=== PATIENT | male | born 2000 ===

== ENCOUNTER 2021-10-01 12:30 | Emergency (ER) | payer BC, SELFPAY ==
--- NOTE | ~2021-10-01 | XR_ITS ---
XR foot RT min 3V 10/01/2021 12:54 INDICATION: Right foot pain after trauma PROCEDURE: 4 views right foot COMPARISON: No prior studies for comparison. FINDINGS: Fracture, dislocation or subluxation is not identified. Lisfranc joint is intact. The soft tissues appear within normal limits. No foreign bodies are identified. IMPRESSION: 1: NO ACUTE BONE OR JOINT ABNORMALITY IDENTIFIED. Reviewed, dictated and finalized at location [facility]. [facility]
[2021-10-01 12:43] VITALS: BP 131/66; PULSE 62; RESP 16; TEMP 35.7; O2SAT 99
--- NOTE | 2021-10-01 13:25 | ED.LOWEXIN ---
HPI - Extremity Injury (Lower) General Chief Complaint: Extremity Injury, Lower Stated Complaint: right great toe History of Present Illness HPI Narrative: This is a 21-year-old that fell on the stairs and tripped over a dog toy last night states that his big toe is the main thing that hurts anytime he puts pressure on it is unable to walk with much pressure on it without severe pain. Related Data Home Medications Medication Instructions Recorded Confirmed albuterol sulfate [ProAir HFA] 2 puff INHALATION QID PRN 10/01/21 10/01/21 Allergies Allergy/AdvReac Type Severity Reaction Status Date / Time DUST MITES Allergy Mild DRY, ROUGH Uncoded 10/01/21 13:12 SKIN Review of Systems Review of Systems: Left foot great toe pain All systems reviewed & are unremarkable except as noted in HPI and below PMFSH Family History Family History (Updated 06/18/16 @ 23:19 by DOCTOR UNKNOWN) Father Family history of diabetes mellitus in first degree relative Social History Social History Smoking status: Never smoker Alcohol intake: never Substance use type: marijuana Comments At time as signature, I have reviewed and agree with nursing past medical, social, surgical and family history. Please see nursing chart for further information. There is no relevant family history pertinent to the presenting complaint. Exam Narrative: GENERAL:Well-appearing, well-nourished, and in no acute distress. HEAD:Normocephalic, atraumatic. EYES: PERRLA ENT: Nares clear, no rhinorrhea CHEST: Clear to auscultation. No respiratory distress. HEART: Regular rate and rhythm. ABDOMEN: Soft, nontender, nondistended, normal active bowel sounds. EXTREMITIES: Normal range of motion. Left great toe swelling with pain pain with ambulation. SKIN: Warm, dry, no rash. NEURO: No focal deficits. Alert and oriented x3. Course Course Emergency Course: No fractures noted on x-ray Vital Signs Vital signs: Vital Signs Temperature 96.3 F L 10/01/21 12:43 Pulse Rate 62 10/01/21 12:43 Respiratory Rate 16 10/01/21 12:43 Blood Pressure 131/66 10/01/21 12:43 Pulse Oximetry 99 10/01/21 12:43 Temperature 96.3 F L 10/01/21 12:43 Pulse Rate 62 10/01/21 12:43 Respiratory Rate 16 10/01/21 12:43 Blood Pressure 131/66 10/01/21 12:43 Pulse Oximetry 99 10/01/21 12:43 Discharge Plan Discharge Clinical Impression: Foot sprain Qualifiers: Encounter type: initial encounter Laterality: left Qualified Code(s): S93.602A - Unspecified sprain of left foot, initial encounter Patient Disposition: Home, Self-Care Condition: Stable Instructions: Antibiotic Form, Foot Sprain (ED) Additional Instructions: Avoid weight bearing until the pain subsides. Ice to the area 20-30 minutes 4-6 times a day Elevate above heart Elastic wrap or orthopedic splint as directed for comfort for the next 5-7 days Crutches as directed if needed Tylenol for lesser pain Ibuprofen regularly for the next 2-3 days for the inflammation Follow up with your primary care provider if the condition is not improving within 1 week or sooner if the condition worsens with numbness, tingling, decrease sensation with weakness to seek ER. Prescriptions: New ibuprofen 800 mg tablet 800 mg PO TID PRN (Reason: pain) Qty: 20 RF: 0 No Action albuterol sulfate [ProAir HFA] 90 mcg/actuation Hfa Aerosol Inhaler 2 puff INHALATION QID PRN (Reason: difficulty breathing) RF: 0 Follow-up/Referrals: Nam Edouard MD [Primary Care Provider] - Stand Alone Forms: Work/School Release IP Time of Disposition: 13:32
== END 2021-10-01 13:35 | disposition home or self-care (01) ==
PROVIDERS: Emergency Provider Nurse Practitioner Family; PCP Family Medicine
DX: S93.402A Sprain of unspecified ligament of left ankle, initial encounter (principal); X58.XXXA Exposure to other specified factors, initial encounter; J45.909 Unspecified asthma, uncomplicated
CPT/HCPCS: 73630; 99213; G0463

== ENCOUNTER 2021-12-18 13:29 | Emergency (ER) | payer BC, SELFPAY ==
--- NOTE | 2021-12-18 13:51 | ED.URI ---
HPI - URI/Sore Throat General Chief Complaint: Upper Respiratory Infection Stated Complaint: Headache,Body Aches Time Seen by Provider: 12/18/21 13:51 Source: patient Mode of arrival: ambulatory Limitations: no limitations History of Present Illness HPI Narrative: Neal Gold is a 21 yo male with a PMH of asthma who had Covid in October [facility] with complaints of cough fever body aches chills for the past 2 to 3 days he also had some diarrhea. He has no sore throat He has not had Covid vaccine Related Data Home Medications Medication Instructions Recorded Confirmed albuterol sulfate [ProAir HFA] 2 puff INHALATION QID PRN 10/01/21 10/01/21 Allergies Allergy/AdvReac Type Severity Reaction Status Date / Time DUST MITES Allergy Mild DRY, ROUGH Uncoded 10/01/21 13:12 SKIN Review of Systems Review of Systems: CONSTITUTIONAL: has fever, chills, sweats. EYES: Denies visual changes, redness, discharge. ENT: Denies rhinorrhea,has congestion, sore throat, otalgia. CARDIOVASCULAR: Denies chest pain, palpitations, edema. RESPIRATORY: Denies dyspnea, wheezing, has cough GASTROINTESTINAL: Denies abdominal pain, nausea, vomiting, had diarrhea. GENITOURINARY: Denies dysuria, hematuria, abnormal discharge SKIN: Denies rash or itching. NEUROLOGIC: Denies numbness, or focal weakness. PSYCHIATRIC: Denies anxiety or depression. PMFSH Past Medical History Medical History Asthma Family History Family History Father Family history of diabetes mellitus in first degree relative Social History Social History Smoking status: Never smoker Alcohol intake: never Substance use type: marijuana Comments At time of signature, I agree with nursing past medical, surgical, social and family history. There is no relevant family history pertinent to the presenting complaint. Patient's blood pressure is elevated at this visit patient has flu Exam Narrative: GENERAL: This is a well-nourished, well-developed patient, in mild distress. HEAD: normocephalic, atraumatic. EYES: P Sclera clear/white. Vision is grossly intact. EARS: External ears normal, auditory canals clear and without drainage. Hearing grossly intact. NOSE: External nose normal without nasal discharge, nares without redness, has rhinorrhea. THROAT: Mucous membranes moist, posterior pharynx pink NECK: Neck supple, non-tender CARDIOVASCULAR: Tachycardic rate and rhythm without murmurs, gallops, or rubs. RESPIRATORY: Diminished to auscultation. Breath sounds equal bilaterally. No wheezes, rales, or rhonchi. GASTROINTESTINAL: Abdomen soft, non-tender, SKIN: warm, intact with no suspicious lesions or rash, good texture and turgor. NEURO: awake, alert, and oriented to person, place and time. There were no obvious focal neurologic abnormalities. Steady gait EXTREMITIES: Normal range of motion. BACK: Nontender without deformity Course Course Emergency Course: Patient comes complaining of fever diarrhea cough general body aches x2 to 3 days. States he had Covid in October. Flu test shows-positive for flu a Covid test shows-negative Treated with cough medicine ibuprofen 600 mg 3 times daily Level of Care: Express Care Visit Vital Signs Vital signs: Vital Signs Temperature 98.7 F 12/18/21 13:58 Pulse Rate 82 12/18/21 13:58 Respiratory Rate 18 12/18/21 13:58 Blood Pressure 150/74 H 12/18/21 13:58 Pulse Oximetry 100 12/18/21 13:58 Temperature 98.7 F 12/18/21 13:58 Pulse Rate 82 12/18/21 13:58 Respiratory Rate 18 12/18/21 13:58 Blood Pressure 150/74 H 12/18/21 13:58 Pulse Oximetry 100 12/18/21 13:58 MDM - URI/Sore Throat Differential Diagnosis Differential diagnosis: Likely upper respiratory infection, sinusitis, viral infection, influenza and pharyn
[2021-12-18 13:58] VITALS: BP 150/74; PULSE 82; RESP 18; TEMP 37.1; O2SAT 100
== END 2021-12-18 14:29 | disposition home or self-care (01) ==
PROVIDERS: Emergency Provider Nurse Practitioner; PCP Family Medicine
DX: J11.1 Influenza due to unidentified influenza virus with other respiratory manifestations (principal); Z20.822 Contact with and (suspected) exposure to COVID-19; J45.909 Unspecified asthma, uncomplicated; Z86.16 Personal history of COVID-19
CPT/HCPCS: 87426; 87804; 99213; C9803; G0463

== ENCOUNTER 2022-03-23 16:25 | Emergency (ER) | payer BC, SELFPAY ==
[2022-03-23 16:34] VITALS: BP 125/67; PULSE 74; RESP 16; TEMP 36.7; O2SAT 99
--- NOTE | 2022-03-23 17:15 | ED.URI ---
HPI - URI/Sore Throat General Chief Complaint: Upper Respiratory Infection Stated Complaint: cough/diarrhea/sore throat Time Seen by Provider: 03/23/22 16:40 Source: patient Mode of arrival: ambulatory Limitations: no limitations History of Present Illness HPI Narrative: Neal is a 21-year-old male patient presenting to the clinic today with complaints of cough, diarrhea, and sore throat x4 days. Mother reports that she started out with the symptoms and thinks that she has given them to her son. He denies any known exposure to anyone with COVID, strep, or flu. He has had COVID in the past. He reports that he is having some abdominal cramping prior to having diarrhea episodes but no more pain otherwise. He denies any fever or chills. He denies any blood in his stool. States the diarrhea has improved and he is only complaining of cough and sore throat. MD elicited complaint: cough, sore throat, nasal congestion and other (Diarrhea) Related Data Home Medications Medication Instructions Recorded Confirmed albuterol 90 mcg INHALATION PRN PRN 03/23/22 03/23/22 Allergies Allergy/AdvReac Type Severity Reaction Status Date / Time DUST MITES Allergy Mild DRY, ROUGH Uncoded 03/23/22 17:02 SKIN Review of Systems Review of Systems: Pertinent positives per HPI. Patient denies any fever, chills, rash, headache, visual changes, dizziness, shortness of breath, chest pain, palpitations, nausea, vomiting, constipation, abdominal pain, or any urinary issues. PMFSH Past Medical History Medical History Asthma Family History Family History Father Family history of diabetes mellitus in first degree relative Social History Social History Smoking status: Never smoker Alcohol intake: never Substance use type: marijuana Comments At the time of my signature, I reviewed and agree with the nursing past medical, surgical, social, and family history. There is no relevant family history pertinent to the patient complaint. Exam Narrative: General: Well-developed, well nourished, in no apparent distress Head: Normocephalic, atraumatic Eyes: Pupils equally round and reactive to light bilaterally, EOM intact, sclera and conjunctive clear, no discharge, lids normal Ears: TMs intact and dull, ear canals clear, no drainage, grossly hearing normal. Nose: Nares patent, clear nasal discharge, no inflammation, no sinus tenderness. Mouth: Oral pharynx without lesions or masses, good dentition, MMM. Postnasal drip, oropharynx red Neck: Supple, trachea midline, no enlargement of anterior or posterior cervical nodes, no thyroid masses or goiter palpable. Cardio: Regular rate and rhythm, s1 and s2 normal, no murmur appreciated. Resp: Clear to auscultation bilaterally, no rhonchi, rales, wheezing or rubs Abdomen: Soft, pliable, nontender to palpation, no organomegaly, bowel sounds present all 4 quadrants, no CVAT tenderness Course Course Emergency Course: Portions of this record may have been created with voice recognition software. Level of Care: Express Care Visit Vital Signs Vital signs: Vital Signs Temperature 36.7 C 03/23/22 16:34 Pulse Rate 74 03/23/22 16:34 Respiratory Rate 16 03/23/22 16:34 Blood Pressure 125/67 03/23/22 16:34 Pulse Oximetry 99 03/23/22 16:34 Temperature 36.7 C 03/23/22 16:34 Pulse Rate 74 03/23/22 16:34 Respiratory Rate 16 03/23/22 16:34 Blood Pressure 125/67 03/23/22 16:34 Pulse Oximetry 99 03/23/22 16:34 Vital signs reviewed MDM - URI/Sore Throat MDM Narrative Medical decision making narrative: At the time of visit patient is resting comfortably on the exam table. He reports that he is having diarrhea, cough, sore throat. COVID, flu, strep testing completed and were all negat
== END 2022-03-23 17:30 | disposition home or self-care (01) ==
PROVIDERS: Emergency Provider Nurse Practitioner Family; PCP Family Medicine
DX: A08.4 Viral intestinal infection, unspecified (principal); J06.9 Acute upper respiratory infection, unspecified; J45.909 Unspecified asthma, uncomplicated; Z20.822 Contact with and (suspected) exposure to COVID-19
CPT/HCPCS: 87081; 87426; 87804; 87880; 99213; C9803; G0463

== ENCOUNTER 2022-04-15 10:19 | Emergency (ER) | payer BC, SELFPAY ==
[2022-04-15 10:22] VITALS: BP 126/68; PULSE 59; RESP 16; TEMP 36.7; O2SAT 99
[2022-04-15 10:37] VITALS: BP 103/82; PULSE 56; RESP 103; O2SAT 100
[2022-04-15 10:56] LABS: Basophils Absolute Auto 0.1 K/mm3 (0.0-0.1); Basophils Percent Auto 0.9 % (0.2-1.2); Eosinophils Absolute Auto 0.1 K/mm3 (0-0.3); Eosinophils Percent Auto 0.9 % (0-4.4); Hematocrit 41.2 % (42.0-52.0); Hemoglobin 13.5 g/dL (14.0-18.0); Immature Granulocyte Absolute 0.02 K/mm3 (0.00-0.031); Immature Granulocyte Percent A 0.3 % (0-0.5); Lymphocytes Absolute Auto 2.41 K/mm3 (0.9-3.2); Lymphocytes Percent Auto 37.8 % (18.3-44.2); Mean Corpuscular HGB Conc 32.8 g/dl (32-36); Mean Corpuscular Hemoglobin 29.9 pg (26-34); Mean Corpuscular Volume 91.4 fl (80-100); Mean Platelet Volume 9.7 fl (7.4-10.4); Monocytes Absolute Auto 0.6 K/mm3 (0.1-0.6); Monocytes Percent Auto 8.6 % (2.6-8.5); Neutrophils Absolute Auto 3.3 K/mm3 (1.3-6.7); Neutrophils Percent Auto 51.5 % (45.5-73.1); Platelet Count Result 184 k/mm3 (150-375); Red Blood Count 4.51 M/mm3 (4.6-6.20); Red Cell Distribution Width 12.6 % (11.5-14.5); White Blood Count 6.4 K/mm3 (4.5-10.0)
[2022-04-15 10:58] LABS: Add Urine Microscopic? NO; Appearance Urine Clear (Clear); Bilirubin Urine Negative (Negative); Blood Urine Negative (Negative); Color Urine Yellow (Yellow); Glucose Urine UA Negative (Negative); Ketones Urine Negative (Negative); Leukocyte Esterase Ur Negative LEU/UL (Negative); Nitrate Urine Negative (Negative); Protein Urine Negative (Negative); pH Urine 7.5 (5.0-9.0)
[2022-04-15 10:59] LABS: Alanine Aminotransferase 35 U/L (6-50); Albumin Level 4.3 g/dL (3.5-5.1); Alkaline Phosphatase 78 U/L (38-126); Anion Gap 8 mmol/L (8-16); Aspartate Amino Transferase 40 U/L (17-59); Bilirubin,Total 1.7 mg/dL (0.2-1.3); Blood Urea Nitrogen 16 mg/dL (9-20); Calcium 8.8 mg/dL (8.4-10.2); Carbon Dioxide 25 mmol/L (22-30); Chloride 107 mmol/L (98-107); Estimated CRCL calculation 136 ml/min; Estimated Glomerular Filt Rate > 60; Glucose 92 mg/dL (65-110); Lipase 95 U/L (23-300); Potassium 4.4 mmol/L (3.4-5.0); Sodium 140 mmol/L (137-145)
[2022-04-15] MEDS: SODIUM CHLORIDE 0.9% IV 500 ML 999 ML IV CONT (11:22)
[2022-04-15 11:23] VITALS: BP 117/67; PULSE 57; RESP 16; O2SAT 100
[2022-04-15] MEDS: ONDANSETRON INJ 4 MG/2 ML VIAL IV PUSH (11:23)
--- NOTE | 2022-04-15 12:09 | ED.NAVMDI ---
HPI - Nausea/Vomiting/Diarrhea General Chief complaint: Nausea/Vomiting/Diarrhea Stated complaint: N/V Time Seen by Provider: 04/15/22 10:44 Source: patient and family Mode of arrival: ambulatory Limitations: no limitations History of Present Illness HPI Narrative: 22-year-old otherwise healthy here with complaints of nausea and vomiting for past several months. Patient states that he occasionally gets up in the morning and has vomiting but he never thought it was a problem for past few days he has been having recurrent vomiting. Patient states he was at work and felt extremely nauseated and threw up. He presently denies any pain, nausea. Related Data Home Medications Medication Instructions Recorded Confirmed albuterol 90 mcg/actuation aerosol 90 mcg inhalation PRN PRN 03/23/22 03/23/22 inhaler difficulty breathing Allergies Allergy/AdvReac Type Severity Reaction Status Date / Time DUST MITES Allergy Mild DRY, ROUGH Uncoded 04/15/22 10:36 SKIN Review of Systems Review of Systems: All systems reviewed & are unremarkable except as noted in HPI and below Constitutional: Constitutional: Reports no additional constitutional complaints Eyes: Eyes: Reports no additional eye complaints ENT: Reports system reviewed and no additional complaints, except as documented Cardiovascular: Cardiovascular: Reports no additional cardiovascular complaints Respiratory: Respiratory: Reports no additional respiratory complaints Gastrointestinal: Gastrointestinal: Reports as per HPI Musculoskeletal: Musculoskeletal: Reports no additional musculoskeletal complaints Integumentary/Breasts: Skin/Breast: Reports system reviewed and no additional complaints, except as docu Neurologic: Reports system reviewed and no additional complaints, except as documented PMFSH Past Medical History Medical History Asthma Family History Family History Father Family history of diabetes mellitus in first degree relative Social History Social History Smoking status: Never smoker Alcohol intake: never Substance use type: marijuana Exam Narrative: GENERAL: Well-appearing, well-nourished, and in no acute distress. HEAD: Normocephalic, atraumatic. EYES: PERRLA and EOMI. NECK: Supple. CHEST: Clear to auscultation. No respiratory distress. HEART: Regular rate and rhythm. No murmur heard. Normal peripheral pulses. ABDOMEN: Soft, nontender, nondistended, normal active bowel sounds. EXTREMITIES: Normal range of motion. No edema. SKIN: Warm, dry, no rash. NEURO: No focal deficits. Alert and oriented x3. PSYCH: Normal mood and affect. Course Course Emergency Course: Patient feeling much better. Informed him about his lab work. Mom requested a GI consult we will give him a referral number for him to contact. Also requesting a day off from work. Vital Signs Vital signs: Vital Signs Temperature 36.7 C 04/15/22 10:22 Pulse Rate 59 L 04/15/22 10:22 Respiratory Rate 16 04/15/22 10:22 Blood Pressure 126/68 04/15/22 10:22 Pulse Oximetry 99 04/15/22 10:22 Oxygen Delivery Room Air 04/15/22 10:22 Temperature 36.7 C 04/15/22 10:22 Pulse Rate 57 L 04/15/22 11:23 Respiratory Rate 16 04/15/22 11:23 Blood Pressure 117/67 04/15/22 11:23 Pulse Oximetry 100 04/15/22 11:23 Oxygen Delivery Room Air 04/15/22 10:37 MDM - Nausea/Vomiting/Diarrhea Lab Data Result diagrams: 04/15/22 10:43 04/15/22 10:43 Labs: Lab Results 04/15/22 04/15/22 04/15/22 Range/Units 10:43 10:43 10:47 WBC 6.4 (4.5-10.0) K/mm3 RBC 4.51 L (4.6-6.20) M/mm3 Hgb 13.5 L (14.0-18.0) g/dL Hct 41.2 L (42.0-52.0) % MCV 91.4 (80-100) fl MCH 29.9 (26-34) pg MCHC 32.8 (32-36) g/dl RDW 12.6 (11.5-14.5
[2022-04-15 12:20] VITALS: BP 111/73; PULSE 67; RESP 18; O2SAT 100
== END 2022-04-15 12:25 | disposition home or self-care (01) ==
PROVIDERS: Emergency Provider Family Medicine; PCP Family Medicine
DX: K29.70 Gastritis, unspecified, without bleeding (principal); J45.909 Unspecified asthma, uncomplicated
CPT/HCPCS: 36415; 80053; 81003; 83690; 85025; 96374; 99284; J2405; J7040

== ENCOUNTER 2022-06-18 09:33 | Emergency (ER) | payer BC, SELFPAY ==
[2022-06-18 09:52] VITALS: BP 139/70; PULSE 73; RESP 17; TEMP 36.5; O2SAT 100
--- NOTE | 2022-06-18 10:15 | ED.ABDPAIN ---
HPI - Abdominal Pain General Chief Complaint: Nausea/Vomiting/Diarrhea Stated Complaint: Nausea Time Seen by Provider: 06/18/22 10:13 Source: patient and RN notes reviewed Mode of arrival: ambulatory Limitations: no limitations History of Present Illness HPI narrative: 22-year-old male presents with concern for nausea and vomiting that started this morning. He reports 2 episodes of vomiting. He denies diarrhea, fever, bodies, chills, sweats, upper respiratory symptoms. He reports he took acid reflux medicine with no relief. Reports he has not tried eating today, he has been drinking water. He reports similar history of vomiting that occurs frequently only in the mornings. MD elicited complaint: other (Nausea and vomiting) Related Data Home Medications Medication Instructions Recorded Confirmed albuterol 90 mcg/actuation aerosol 90 mcg inhalation PRN PRN 03/23/22 06/18/22 inhaler difficulty breathing Allergies Allergy/AdvReac Type Severity Reaction Status Date / Time DUST MITES Allergy Mild DRY, ROUGH Uncoded 06/18/22 09:57 SKIN Review of Systems Review of Systems: CONSTITUTIONAL: Denies malaise, chills, sweats, or fever. ENT: Denies rhinorrhea, congestion, sinus pain, otalgia or sore throat. CARDIOVASCULAR: Denies chest pain, palpitations, or edema. RESPIRATORY: Denies cough or dyspnea. GASTROINTESTINAL: Denies abdominal pain, diarrhea, bloody, or mucous stools. Reports 2 episodes of nausea and vomiting GENITOURINARY: Denies dysuria or hematuria. MUSCULOSKELETAL: Denies myalgia. NEUROLOGIC: Denies headache. All systems reviewed & are unremarkable except as noted in HPI and below PMFSH Past Medical History Medical History Asthma Family History Family History Father Family history of diabetes mellitus in first degree relative Social History Social History Smoking status: Never smoker Alcohol intake: never Substance use type: marijuana Comments At time of signature, agree with nursing past medical, surgical, social and family history. There is no relevant family history pertinent to the presenting complaint Exam Narrative: GENERAL: Well-appearing, well-nourished, and in no acute distress. HEAD: Normocephalic, atraumatic. EYES: PERRLA, conjunctivae clear, and EOMI. ENT: Nares clear, turbinates pink, no rhinorrhea or epistaxis. Mucous membranes moist. Oropharynx without edema, erythema, or lesions. Tonsils not enlarged and without exudate. NECK: Supple. No lymphadenopathy CHEST: Speaks in full sentences. No respiratory distress. HEART: Regular rate and rhythm. ABDOMEN: Soft, flat, nondistended, nontender. No guarding, rebound tenderness, or rigidity. No pulsatile masses. Bowel sounds present in all four quadrants. No organomegaly. Negative Chappell?s sign. No periumbilical tenderness. No Supra public tenderness or distension. Good femoral pulses bilaterally. No hernia noted. No scars or surface trauma. SKIN: Warm, dry, no rash. NEURO: Alert and oriented x3. PSYCH: Normal mood and affect Course Course Emergency Course: Patient is aware of diagnosis, understands and agrees to treatment plan. Anticipatory guidance given. Patient agrees to follow-up as directed and is aware of reasons to seek care at the emergency department. Portions of this record may have been created with voice recognition software Level of Care: Express Care Visit Vital Signs Vital signs: Vital Signs Temperature 97.7 F 06/18/22 09:52 Pulse Rate 73 06/18/22 09:52 Respiratory Rate 17 06/18/22 09:52 Blood Pressure 139/70 06/18/22 09:52 Pulse Oximetry 100 06/18/22 09:52 Oxygen Delivery Room Air 06/18/22 09:52 Temperature 97.7 F 06/18/22 09:52 Pulse Rate 73 06/18/22 09:52 Respiratory Rate 06/18/22 09:52 Blood Pressure 139/70
== END 2022-06-18 10:36 | disposition home or self-care (01) ==
PROVIDERS: Emergency Provider Nurse Practitioner; PCP Family Medicine
DX: R11.2 Nausea with vomiting, unspecified (principal); J45.909 Unspecified asthma, uncomplicated
CPT/HCPCS: 99213; G0463

== ENCOUNTER 2022-07-09 12:41 | Emergency (ER) | payer BC, SELFPAY ==
[2022-07-09 12:49] VITALS: BP 117/74; PULSE 66; RESP 16; TEMP 36.4; O2SAT 99
--- NOTE | 2022-07-09 13:00 | ED.NAVMDI ---
HPI - Nausea/Vomiting/Diarrhea General Chief complaint: Nausea/Vomiting/Diarrhea Stated complaint: n/v/d Time Seen by Provider: 07/09/22 13:09 History of Present Illness HPI Narrative: 22 y/o male presented for c/o sore throat, n/v and feeling warm for 2 days. Taking ibuprofen for throat pain. Hx recurrent reflux/vomiting, stating the episode of vomiting is not unusual, and plans to f/u with GI specialist. Has not eaten anything today. Denies cough, shortness of breath, wheezing, diarrhea, hematemesis. Not vaccinated for covid. Denies sick contacts. Related Data Home Medications Medication Instructions Recorded Confirmed albuterol 90 mcg/actuation aerosol 90 mcg inhalation PRN PRN 03/23/22 07/09/22 inhaler difficulty breathing Allergies Allergy/AdvReac Type Severity Reaction Status Date / Time DUST MITES Allergy Mild DRY, ROUGH Uncoded 07/09/22 12:43 SKIN Review of Systems Review of Systems: CONSTITUTIONAL: Denies body aches, fever, chills, or sweats. EYES: Denies visual changes, redness, or discharge. ENT: Denies rhinorrhea, congestion, or otalgia. CARDIOVASCULAR: Denies chest pain, palpitations, or edema. RESPIRATORY: Denies dyspnea. GASTROINTESTINAL: Denies abdominal pain, diarrhea. SKIN: Denies rash, itching, or wounds. MUSCULOSKELETAL: Denies back pain, joint pain, or myalgia. NEUROLOGIC: Denies headache PMFSH Past Medical History Medical History Asthma Family History Family History Father Family history of diabetes mellitus in first degree relative Social History Social History Smoking status: Never smoker Alcohol intake: never Substance use type: marijuana Exam Narrative: GENERAL: well-appearing EYES: conjunctivae clear ENT: Mucous membranes moist. TMs pearly with normal light reflex bilaterally; no tragal tenderness. Oropharynx erythematous without lesions. No drooling, no hoarseness, no trismus, uvula midline. No tripod positioning, hot potato voice, or soft palate swelling. NECK: Supple. No lymphadenopathy CHEST: Clear to auscultation, breath sounds equal. ABD: soft flat nontender HEART: Regular rate and rhythm. No murmur heard. SKIN: Warm, dry, no rash. NEURO: Alert and oriented x3. Course Course Emergency Course: Patient is aware of diagnosis, understands and agrees to treatment plan. Anticipatory guidance given. Patient agrees to follow-up as directed and is aware of reasons to seek care at the emergency department. Portions of this record may have been created with voice recognition software Level of Care: Express Care Visit Vital Signs Vital signs: Vital Signs Temperature 97.5 F L 07/09/22 12:49 Pulse Rate 66 07/09/22 12:49 Respiratory Rate 16 07/09/22 12:49 Blood Pressure 117/74 07/09/22 12:49 Pulse Oximetry 99 07/09/22 12:49 Oxygen Delivery Room Air 07/09/22 12:49 Temperature 97.5 F L 07/09/22 12:49 Pulse Rate 66 07/09/22 12:49 Respiratory Rate 16 07/09/22 12:49 Blood Pressure 117/74 07/09/22 12:49 Pulse Oximetry 99 07/09/22 12:49 Oxygen Delivery Room Air 07/09/22 12:49 MDM - Nausea/Vomiting/Diarrhea MDM Narrative Medical decision making narrative: Covid negative. reviewed with pt. Advised supportive measures and signs/symptoms to go to the ER. Pt is appropriate for outpt treatment and f/u. Differential Diagnosis Differential diagnosis: Likely gastroenteritis and other (viral infection, reflux, pharyngitis, tonsillitis) Lab Data Labs: Lab Results 07/09/22 Range/Units 13:00 POC SARS CoV-2 Ag Negative (Negative) Discharge Plan Discharge Clinical Impression: Acute viral syndrome Patient Disposition: Home, Self-Care Condition: Stable Instructions: Antibiotic Form, COVID-19 (Coronavirus Disease 2
== END 2022-07-09 13:25 | disposition home or self-care (01) ==
PROVIDERS: Emergency Provider Nurse Practitioner Family; PCP Family Medicine
DX: B34.9 Viral infection, unspecified (principal); Z20.822 Contact with and (suspected) exposure to COVID-19; J45.909 Unspecified asthma, uncomplicated
CPT/HCPCS: 87426; 99213; C9803; G0463

== ENCOUNTER 2022-09-06 14:50 | Emergency (ER) | payer BC, SELFPAY ==
[2022-09-06 15:14] VITALS: BP 138/69; PULSE 55; RESP 20; TEMP 36.6; O2SAT 100
--- NOTE | 2022-09-06 15:27 | ED.GENADULT ---
HPI - General Adult General Chief complaint: Abdominal Pain Stated complaint: Abdominal Pain Time Seen by Provider: 09/06/22 15:28 Source: patient, RN notes reviewed and old records reviewed Mode of arrival: ambulatory Limitations: no limitations History of Present Illness HPI narrative: 22-year-old male presents to the [facility] with complaints of diarrhea once last night and once this morning. Patient states that he just wants to get checked out. Patient denies any abdominal pain or chest pain. No shortness of breath. Denies fevers. Denies urinary symptoms. Requesting a work note Review of Systems Review of Systems: All systems reviewed & are unremarkable except as noted in HPI and below Constitutional: Constitutional: Reports no additional constitutional complaints, Denies chills and Denies fever(s) Eyes: Eyes: Reports no additional eye complaints ENT: Reports system reviewed and no additional complaints, except as documented Cardiovascular: Cardiovascular: Reports no additional cardiovascular complaints Respiratory: Respiratory: Reports no additional respiratory complaints Gastrointestinal: Gastrointestinal: Reports as per HPI, Denies abdominal pain, Reports diarrhea, Denies nausea and Denies vomiting Musculoskeletal: Musculoskeletal: Reports no additional musculoskeletal complaints Integumentary/Breasts: Skin/Breast: Reports system reviewed and no additional complaints, except as docu Neurologic: Reports system reviewed and no additional complaints, except as documented Psychiatric: Psychiatric: Reports no additional psychiatric complaints Allergic/Immunologic: Allergic/Immunologic: Reports no additional allergic/immunologic complaints PMFSH Past Medical History Medical History Asthma Family History Family History Father Family history of diabetes mellitus in first degree relative Social History Social History Smoking status: Never smoker Alcohol intake: never Substance use type: marijuana Comments At the time of my signature, I reviewed and agree with the nursing past medical, surgical, social, and family history. There is no relevant family history pertinent to the patient complaint. Exam Const: General: healthy appearing, no acute distress, alert and well nourished Nutritional Appearance: well nourished Orientation/consciousness: patient oriented x3 Limitations: no limitations HENMT: Head: normal to inspection Ears: external ears normal Eyes: General: appearance normal, both eyes and all related structures Pupils: Equal, round and reactive pupils present Neck: Neck: normal visual inspection, no lymphadenopathy and no meningeal signs Chest: Chest palpation & inspection: normal inspection of the chest Resp: Effort & Inspection: normal respiratory effort and no use of accessory muscles Auscultation: clear to auscultation bilaterally, no crackles, no rales, no rhonchi and no wheezes Cardio: Rate: regular rate Rhythm: regular rhythm GI: GI Palp: Yes Soft to palpation and No Tenderness to palpation present (GI) Auscultation: normal bowel sounds Back/Spine/Pelvis: Cervical Spine: normal cervical lordosis Thoracic/Lumbar Spine: thoracic and lumbar spine normal to inspection Skin: General skin exam: normal color Rashes: no rashes Wounds: no wounds Neuro: General: patient oriented x3, moves all extremities, no meningeal signs and no focal motor deficits Cranial nerves: Yes Equal, round and reactive pupils present Speech: normal speech Gait exam (Neuro): Normal gait present Extrem: General: normal to inspection, full ROM and capillary refill normal Psych: Appearance: grossly normal and well kempt Mental Status: mental status grossly normal Affect: normal affect Attitude: cooperative Thought content: Yes Normal thoug
== END 2022-09-06 15:36 | disposition home or self-care (01) ==
PROVIDERS: Emergency Provider Nurse Practitioner; PCP Family Medicine
DX: R10.9 Unspecified abdominal pain (principal); J45.909 Unspecified asthma, uncomplicated
CPT/HCPCS: 99211; G0463

== ENCOUNTER 2023-01-23 19:12 | Emergency (ER) | payer BC, SELFPAY ==
[2023-01-23 19:29] VITALS: BP 136/75; PULSE 74; RESP 17; TEMP 37.2; O2SAT 99
[2023-01-23 19:50] LABS: Alanine Aminotransferase 42 U/L (6-50); Albumin Level 4.8 g/dL (3.5-5.1); Alkaline Phosphatase 97 U/L (38-126); Anion Gap 6 mmol/L (8-16); Aspartate Amino Transferase 40 U/L (17-59); Bilirubin,Total 2.3 mg/dL (0.2-1.3); Blood Urea Nitrogen 12 mg/dL (9-20); Calcium 9.3 mg/dL (8.4-10.2); Carbon Dioxide 24 mmol/L (22-30); Chloride 106 mmol/L (98-107); Estimated CRCL calculation 152 ml/min; Estimated Glomerular Filt Rate > 60; Glucose 97 mg/dL (65-110); Lipase 53 U/L (23-300); Sodium 136 mmol/L (137-145)
[2023-01-23 20:01] LABS: Basophils Percent Auto 0.3 % (0.2-1.2); Eosinophils Percent Auto 0.3 % (0-4.4); Hematocrit 47.2 % (42.0-52.0); Hemoglobin 15.7 g/dL (14.0-18.0); Immature Granulocyte Absolute 0.02 K/mm3 (0.00-0.031); Immature Granulocyte Percent A 0.3 % (0-0.5); Lymphocytes Absolute Auto 0.78 K/mm3 (0.9-3.2); Lymphocytes Percent Auto 10.8 % (18.3-44.2); Mean Corpuscular HGB Conc 33.3 g/dl (32-36); Mean Corpuscular Hemoglobin 30.4 pg (26-34); Mean Corpuscular Volume 91.5 fl (80-100); Monocytes Absolute Auto 0.4 K/mm3 (0.1-0.6); Neutrophils Absolute Auto 5.9 K/mm3 (1.3-6.7); Neutrophils Percent Auto 82.3 % (45.5-73.1); Platelet Count Result 178 k/mm3 (150-375); Red Blood Count 5.16 M/mm3 (4.6-6.20); Red Cell Distribution Width 12.2 % (11.5-14.5); White Blood Count 7.2 K/mm3 (4.5-10.0)
[2023-01-24] VITALS (9 sets, daily range): BP systolic 123–136; BP diastolic 81–88; PULSE 60–89; RESP 14–19; O2SAT 95–100
--- NOTE | 2023-01-24 00:47 | ED.GENADULT ---
HPI - General Adult General Chief complaint: Nausea/Vomiting/Diarrhea Stated complaint: nausea/diarrhea Time Seen by Provider: 01/24/23 00:00 History of Present Illness HPI narrative: Patient 22-year-old gentleman who presents the emergency department with chief complaint of nausea vomiting diarrhea. Patient reports this morning he started having multiple bouts of nausea and vomiting and has had several episodes of diarrhea. Patient states he had some epigastric discomfort with taken antiacid and is feeling much better. Patient denies localized abdominal pain patient denies fever Related Data Allergies Allergy/AdvReac Type Severity Reaction Status Date / Time No Known Allergies Allergy Verified 01/23/23 19:31 Review of Systems Review of Systems: A 10 system review of systems was completed on the patient and is negative except for what is stated in the HPI. Nursing and ancillary documentation was reviewed. [facility] Past Medical History Medical History Asthma Family History Family History Father Family history of diabetes mellitus in first degree relative Social History Social History Smoking status: Never smoker Alcohol intake: never Substance use type: marijuana Exam Narrative: GENERAL: Well-appearing, well-nourished, and in no acute distress. HEAD: Normocephalic, atraumatic. EYES: PERRLA and EOMI. ENT: Nares clear, no rhinorrhea or epistaxis. Mucous membranes moist. NECK: Supple. CHEST: Clear to auscultation. No respiratory distress. HEART: Regular rate and rhythm. No murmur heard. Normal peripheral pulses. ABDOMEN: Soft, nontender, nondistended, normal active bowel sounds. EXTREMITIES: Normal range of motion. No edema. SKIN: Warm, dry, no rash. NEURO: No focal deficits. Alert and oriented x3. PSYCH: Normal mood and affect. Course Vital Signs Vital signs: Vital Signs Temperature 37.2 C 01/23/23 19:29 Pulse Rate 74 01/23/23 19:29 Respiratory Rate 17 01/23/23 19:29 Blood Pressure 136/75 01/23/23 19:29 Pulse Oximetry 99 01/23/23 19:29 Oxygen Delivery Room Air 01/23/23 19:29 Temperature 37.2 C 01/23/23 19:29 Pulse Rate 62 01/24/23 00:04 Respiratory Rate 14 01/24/23 00:04 Blood Pressure 134/88 01/24/23 00:04 Pulse Oximetry 100 01/24/23 00:04 Oxygen Delivery Room Air 01/23/23 19:29 Medical Decision Making MDM Narrative Medical decision making narrative: Differential diagnosis includes gastroenteritis, gastritis, intra-abdominal infection, Patient's laboratory studies showed normal white blood cell count electrolytes and LFTs were within normal limits with exception of a mildly elevated bilirubin of 2.3. Patient at baseline has had a mildly elevated bilirubin at 1.7 on his last set of labs. The patient has a normal lipase. Patient rehydrated in the emergency department and given antiemetics. The patient will be discharged home on a Zofran ODT Vital Signs Vital Signs: Vital Signs Temperature 37.2 C 01/23/23 19:29 Pulse Rate 74 01/23/23 19:29 Respiratory Rate 17 01/23/23 19:29 Blood Pressure 136/75 01/23/23 19:29 Pulse Oximetry 99 01/23/23 19:29 Oxygen Delivery Room Air 01/23/23 19:29 Temperature 37.2 C 01/23/23 19:29 Pulse Rate 62 01/24/23 00:04 Respiratory Rate 14 01/24/23 00:04 Blood Pressure 134/88 01/24/23 00:04 Pulse Oximetry 100 01/24/23 00:04 Oxygen Delivery Room Air 01/23/23 19:29 Lab Data 01/23/23 19:35 01/23/23 19:35 Labs: Lab Results 01/23/23 01/23/23 Range/Units 19:35 19:35 WBC 7.2 (4.5-10.0) K/mm3 RBC 5.16 (4.6-6.20) M/mm3 Hgb 15.7 (14.0-18.0) g/dL Hct 47.2 (42.0-52.0) % MCV 91.5 (80-100) fl MCH 30.4 (26-34) pg MCHC 33.3 (32-36)
[2023-01-24] MEDS: ONDANSETRON INJ 4 MG/2 ML VIAL IV PUSH (01:01)
[2023-01-24] MEDS: DICYCLOMINE HCL INJ 20 MG/2 ML VIAL IM (01:05)
[2023-01-24] MEDS: SODIUM CHLORIDE 0.9% IV 1,000 ML 999 ML IV CONT (01:06)
== END 2023-01-24 02:15 | disposition home or self-care (01) ==
PROVIDERS: Emergency Medicine; Emergency Provider Emergency Medicine; PCP Family Medicine
DX: K52.9 Noninfective gastroenteritis and colitis, unspecified (principal); J45.909 Unspecified asthma, uncomplicated
CPT/HCPCS: 36415; 80053; 83690; 85025; 96361; 96372; 96374; 99284; J0500; J2405; J7030